=== PATIENT | male | born 1995 | race Caucasian/White ===

== ENCOUNTER 2022-09-28 13:22 | Emergency (ER) | payer OTHER ==
[~2022-09-28] VITALS: Ht 188 cm; Wt 86.2 kg
[2022-09-28] MEDS ORDERED: HYDROCODON-ACE1 EA11 PO (14:59)
[2022-09-28 15:46] VITALS: BP 153/76
== END 2022-09-28 16:10 | disposition home or self-care (01) ==
LOC: ED 13:22
DX: S82.232A Displaced oblique fracture of shaft of left tibia, initial encounter for closed fracture (principal); S82.432A Displaced oblique fracture of shaft of left fibula, initial encounter for closed fracture; W22.8XXA Striking against or struck by other objects, initial encounter
CPT/HCPCS: 73590

== ENCOUNTER 2022-10-04 10:48 | Day surgery (SDC) | payer OTHER ==
[~2022-10-04] VITALS: Ht 185.4 cm; Wt 83.9 kg
[~2022-10-04 10:48] MED LIST: HYDROCODON-ACE1 EA11 PO
[2022-10-04 11:28] VITALS: BP 147/78
[2022-10-04] MEDS ORDERED: [UNRECOGNIZED DRUG - OTHER] PO (11:31)
[2022-10-04] MEDS ORDERED: MULTI VITAMIN1 EACH PO (11:31)
[2022-10-04] MEDS ORDERED: SENNA LAX8.6 MG PO (14:21)
[2022-10-04] MEDS ORDERED: OXYCODONE HCL5 MG PO (14:21)
[2022-10-04 15:13] VITALS: BP 164/89
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
--- NOTE | 2022-10-04 15:24 | NUR ---
1455: PT ARRIVES TO THE UNIT VIA STRETCHER FROM PACU. AWAKE AND ALERT ON ARRIVAL. VSS, RESP EVEN AND UNLABORED.DENIES NAUSEA BUT REPORTS 7/10 PAIN TO OPERATIVE SITE. OFFSHORING MANAGER AWARE. TO RECEIVE PO PAIN RX. CMS, WNL. ICE TO EXTREMITY. SCDS IN PLACE. ICE WATER, CRACKERS AND JELLO PROVIDED. PT TANG PO INTAKE. PO RX ADMINISTERED ORDERED. POC DISCUSSED AND PT AGREEABLE. NO NEEDS VOICED AT THIS TIME, CALL LIGHT WITHIN REACH
[2022-10-04 15:50] VITALS: BP 157/88
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
[2022-10-05] MEDS ORDERED: ONDANSETRON ODT8 MG PO (09:39)
== END 2022-10-04 16:55 | disposition home or self-care (01) ==
LOC: DS 10:48 → MS 13:15 → EDSTATUS 14:15 → MS 14:15 → DS 16:55
PROVIDERS: ATTEND Specialist
PROC: 0QSH04Z Reposition Left Tibia with Internal Fixation Device, Open Approach (ICD-10-PCS; 2022-10-04)
PROC: 3E0T3BZ Introduction of Anesthetic Agent into Peripheral Nerves and Plexi, Percutaneous Approach (ICD-10-PCS; principal; 2022-10-04 13:15)
DX: S82.24 Spiral fracture of shaft of tibia (principal); S82.401A Unspecified fracture of shaft of right fibula, initial encounter for closed fracture
CPT/HCPCS: 01480; 64447; 64454; 73590; 76942; C1713; C1769; J0131; J0690; J1100; J1885; J2001; J2250; J2405; J2704; J2795; J3010; J3490; J7121